=== PATIENT | male | born 1990 | race Caucasian/White ===

== ENCOUNTER 2024-07-26 07:09 | Emergency (ER) | payer SELFPAY ==
[~2024-07-26] VITALS: Ht 193 cm; Wt 93.0 kg
[2024-07-26 07:46] VITALS: TEMP 36.8; O2SAT 99
[2024-07-26] MEDS: KETOROLAC 15MG/ML VIAL IM ONE (09:10)
[2024-07-26] MEDS: ACETAMINOPHEN 325MG TABLET PO ONE (09:10)
[2024-07-26] MEDS: LIDOCAINE 5% PATCH TOP SCH (09:10)
[2024-07-26 09:53] VITALS: BP 129/73; PULSE 69; RESP 16; O2SAT 100
== END 2024-07-26 09:48 | disposition home or self-care (01) ==
LOC: ER 07:09
DX: M54.9 Dorsalgia, unspecified (principal); Z98.890 Other specified postprocedural states
CPT/HCPCS: 96372; 99283; J1885; Z7610